=== PATIENT | female | born 1945 | race Caucasian/White ===

== ENCOUNTER 2019-03-18 11:06 | Emergency (ER) | payer MEDICARE, OTHER ==
[~2019-03-18] VITALS: Ht 165.1 cm; Wt 64.9 kg
--- NOTE | 2019-03-18 11:17 | ED GU-Female ---
General Chief Complaint: - Urinary Stated Complaint: URINARY PAIN; HEMATURIA History of Present Illness Date Seen by Provider: Mar 18, 2019 Time Seen by Provider: 11:26 Initial Comments Patient is a 73-year-old female who presents to the emergency department today complaining of dysuria. She has had stuttering symptoms over the last 3-4 days. This morning, she perceived some blood in her urine. She also has had to get out of bed more frequently overnight to urinate compared to baseline. She does have prior history of UTIs and states her symptoms seem similar. No flank pain. No fever. No nausea or vomiting. No abdomen or pelvic pain. Allergies and Home Medications Allergies Uncoded Allergies: SULFA (Allergy, Unknown, 03/18/19) Home Medications Nitrofurantoin Monohyd/M-Cryst 100 Mg Capsule, 100 MG PO BID Prescribed by: LORIE WILSON on 03/18/19 1147 Patient Home Medication List Home Medication List Reviewed: Yes Review of Systems Review of Systems Constitutional: no symptoms reported EENTM: no symptoms reported Respiratory: no symptoms reported Cardiovascular: no symptoms reported Gastrointestinal: no symptoms reported Genitourinary: see HPI Skin: no symptoms reported Physical Exam Vital Signs Vital Signs - First Documented 03/18/19 11:13 Temp 98.1 Pulse 104 Resp 16 B/P (MAP) 135/87 (103) Pulse Ox 96 Capillary Refill : Height, Weight, BMI Height: '" Weight: lbs. oz. kg; BMI Method: General Appearance: WD/WN, no apparent distress Neck: full range of motion Cardiovascular: regular rate, rhythm, no edema, other (2+ posterior tibial pulses in the right lower extremity. Skin is warm to touch with brisk capillary refill) Gastrointestinal: non tender Extremities: normal range of motion, no pedal edema Neurologic/Psychiatric: no motor/sensory deficits, oriented x 3 Skin: normal color Progress/Results/Core Measures Suspected Sepsis SIRS Temperature: Pulse: Respiratory Rate: Blood Pressure / Mean: Results/Orders Lab Results Laboratory Tests Test 03/18/19 11:15 Range/Units Urine Color DARK YELLOW Urine Clarity CLOUDY Urine pH 5.5 5-9 Urine Specific [place] 1.020 1.016-1.022 Urine Protein 1+ H NEGATIVE Urine Glucose (UA) NEGATIVE NEGATIVE Urine Ketones TRACE H NEGATIVE Urine Nitrite NEGATIVE NEGATIVE Urine Bilirubin 1+ H NEGATIVE Urine Urobilinogen 1.0 NORMAL MG/DL Urine Leukocyte Esterase 3+ H NEGATIVE Urine RBC (Auto) 3+ H NEGATIVE Urine RBC 5-10 H /HPF Urine WBC TNTC H /HPF Urine Squamous Epithelial Cells 5-10 /HPF Urine Crystals NONE /LPF Urine Bacteria MODERATE H /HPF Urine Casts NONE /LPF Urine Mucus SMALL H /LPF Urine Culture Indicated YES My Orders Orders - LORIE WILSON DO Urinalysis (03/18/19 11:16) Urine Culture (03/18/19 11:15) Nitrofurantoin Capsule,Macro (Macrobid C (03/18/19 11:45) Vital Signs/I&O 03/18/19 11:13 Temp 98.1 Pulse 104 Resp 16 B/P (MAP) 135/87 (103) Pulse Ox 96 Capillary Refill : Progress Note : Time: 11:29 Progress Note Patient is seen and examined. No acute findings on physical exam. The patient is 2 days status post stent placement in the right leg for treatment of peripheral artery disease. Examination of the right lower extremity is normal with no concerns for medication from that. Patient presents with simple urinary symptoms and no fever or flank pain. Urinalysis is ordered. 11:50: Urinalysis is returned and does confirm the suspected diagnosis. Patient is discharged to home. She is given a Macrobid in the emergency room and discharged home with the same. She is offered Pyridium but declines the need. Urine culture is added to her lab panel. Patient is advised to follow-up with her primary care doctor or return to this ER for any new or worsening symptoms. Departure Impression Primary Impression: Urinary tract infection Disposition: 01 HOME, SELF-CARE Condition: Improved Departure-Patient Inst. Referrals: DEONDRE MYRICK MD (PCP/Family) Primary Care Physician Scripts Nitrofurantoin Monohyd/M-Cryst (Macrobid 100 mg Capsule) 100 Mg Capsule 100 MG PO BID for 5 Days, #10 0 Refills Prov: LORIE WILSON DO 03/18/19 LORIE WILSON DO Mar 18, 2019 11:17
[2019-03-18 11:37] LABS: BACTERIA,URINE MODERATE /HPF; BILIRUBIN,URINE 1+ (NEGATIVE); CLARITY,URINE CLOUDY; COLOR,URINE DARK YELLOW; GLUCOSE, URINE (UA) NEGATIVE (NEGATIVE); KETONES,URINE TRACE (NEGATIVE); LEUKOCYTE ESTERASE ,URINE 3+ (NEGATIVE); NITRITE,URINE NEGATIVE (NEGATIVE); PH,URINE 5.5 (5-9); PROTEIN,URINE 1+ (NEGATIVE); WBC,URINE TNTC /HPF
[2019-03-18] MEDS ORDERED: NITROFURANTOIN 100 MG (MACROBID) CAPSULE PO ONE (11:45)
[2019-03-18] MEDS ORDERED: NITR-65 PO (11:47)
[2019-03-18 12:04] VITALS: BP 117/70
== END 2019-03-18 12:04 | disposition home or self-care (01) ==
LOC: ER FS 11:10
DX: N39.0 Urinary tract infection, site not specified (principal); Z88.2 Allergy status to sulfonamides
CPT/HCPCS: 81000; 87077; 87088; 87186; 99283

== ENCOUNTER → 2019-12-13 | Outpatient (CLI) | payer MEDICARE ==
[~2019-12-13] MED LIST: NITR-65 PO
[2019-12-13 09:57] LABS: CHLORIDE 105 MMOL/L (98-107); POTASSIUM 4.3 MMOL/L (3.6-5.0); SODIUM 142 MMOL/L (135-145)
[2019-12-13 09:58] LABS: ALANINE AMINOTRANSFERASE 15 U/L (0-55); ALBUMIN 4.1 GM/DL (3.2-4.5); ALKALINE PHOSPHATASE 95 U/L (40-136); BILIRUBIN,TOTAL 0.3 MG/DL (0.1-1.0); BUN/CREATININE RATIO 14; CALCIUM 9.3 MG/DL (8.5-10.1); CARBON DIOXIDE 27 MMOL/L (21-32); CREATININE SERUM 0.83 MG/DL (0.60-1.30); GFR ESTIMATED > 60; GLUCOSE 117 MG/DL (70-105); TOTAL PROTEIN 6.7 GM/DL (6.4-8.2)
[2019-12-13 15:17] LABS: TRIGLYCERIDES 73 MG/DL (<150); VLDL CHOLESTEROL 15 MG/DL (5-40)
[2019-12-13 15:22] LABS: CHOLESTEROL 184 MG/DL (< 200)
[2019-12-13 15:23] LABS: HDL CHOLESTEROL 78 MG/DL (40-60)
== END ==
LOC: LAB FS 09:06
PROVIDERS: ATTEND Family Medicine
DX: I10 Essential (primary) hypertension (principal); E78.00 Pure hypercholesterolemia, unspecified; I73.9 Peripheral vascular disease, unspecified; E89.0 Postprocedural hypothyroidism
CPT/HCPCS: 36415; 80053; 80061; 84443